=== PATIENT | male | born 1975 | race Caucasian/White ===

== ENCOUNTER 2021-02-08 08:57 | Day surgery (SDC) | payer OTHER, SELFPAY ==
[2021-02-08] VITALS (16 sets, daily range): BP systolic 115–171; BP diastolic 80–112; PULSE 76–92; RESP 16–97; TEMP 36.1–36.9; O2SAT 91–99; BMI 52.9
--- NOTE | 2021-02-08 09:55 | W.ED.ABDPA2 ---
HPI - Abdominal Pain General: Chief Complaint: Abdominal Pain Stated Complaint: ABD Pain Time Seen by Provider: 02/08/21 09:03 History of Present Illness: HPI narrative: 46-year-old male comes in complaining of an umbilical hernia he is a bulging umbilical hernia that is exquisitely tender. He had increased pain for the last 2 days he last ate last night around 9:00. He was seen earlier today by Dr. Edwards in the clinic and referred here for imaging. He denies any fever sweats chills no recent cough or cold he has been very nauseous but did not throw up until after the CT. He had a CT with IV contrast here immediately afterward he got very flushed nauseous but did not have any difficulty breathing. See notes below. MD elicited complaint: abdominal pain Onset (ago): day(s) Pain Consistency: constant Location: Diffuse Severity: moderate Quality: cramping Exacerbating factors: eating and movement Relieving factors: rest Associated Symptoms: Reports anorexia, bloating, GI cramping, nausea and poor appetite; Denies belching, change in bowel habits, change in stool character, chills, coffee ground emesis, constipation, diarrhea, dyspepsia, dysuria, excessive flatus, fever(s), heartburn, hematochezia, hematuria, hematemesis, fecal incontinence, loose stools, melena, syncope and vomiting Review of Systems Const: Denies: fever(s) or chills ENMT: Denies: throat pain, ear or mastoid pain, nasal discharge or nasal congestion Card: Denies: syncope Resp: Denies: dyspnea, productive cough or non-productive cough GI: Reports: nausea, bloating and GI cramping; Denies: vomiting, hematemesis, coffee ground emesis, heartburn, diarrhea, constipation, belching, excessive flatus, fecal incontinence, change in bowel habits, change in stool character, hematochezia or melena : Denies: dysuria or hematuria Skin/Breast: Denies: rash or pruritus PFSH ED PFSH: Medical History (Updated 02/10/21 @ 06:50 by Troy Spence DO) Arthritis Surgical History (Updated 02/08/21 @ 12:41 by Bladimir Edwards MD) History of knee surgery L x 2, R x 1 Social History (Updated 02/08/21 @ 12:44 by Bladimir Edwards MD) Smoking and tobacco status: never smoked Alcohol intake: never Physical Exam Const: COMMON NORMALS: no acute distress GENERAL APPEARANCE: cooperative and comfortable ORIENTATION/CONSCIOUSNESS: Yes awake, Yes oriented to person, Yes oriented to place and Yes oriented to time HENMT: COMMON NORMALS: normocephalic, atraumatic and hearing grossly normal bilaterally HEAD & SCALP: normocephalic and atraumatic Neck/C-Spine: COMMON NORMALS: no JVD Resp: COMMON NORMALS: normal respiratory effort, No retractions, No use of accessory muscles and clear to auscultation bilaterally AUSCULTATION: clear to auscultation bilaterally Cardio: COMMON NORMALS: no JVD, regular rate, regular rhythm and No murmurs present (Cardio) RATE: regular rate RHYTHM: regular rhythm GI: COMMON NORMALS: No hepatosplenomegaly present INSPECTION: Yes central obesity and Yes visible herniation (Obvious umbilical hernia mildly erythematous not amenable to reduction at t) AUSCULTATION: Yes Hypoactive bowel sounds present PALPATION: Yes Tenderness to palpation present (GI), No Guarding due to palpation present (GI) and Yes No hepatosplenomegaly present PERCUSSION: tympanic to percussion Extremity: COMMON NORMALS: normal to inspection, capillary refill normal, no clubbing, cyanosis or edema, no calf tenderness and no pedal edema Neuro: SENSORIUM/ORIENTATION: Yes oriented to person, Yes oriented to place and Yes oriented to time Skin: COMMON NORMALS: no rashes or lesions noted GENERAL SKIN EXAM: no rashes or lesions noted Course Vital Signs: Vital signs: Vital Signs Temperature 97.8 F 02/08/21 19:20 Pulse Rate 90 02/08/21 19:42 Respiratory Rate 18 02/08/21 19:42 Blood Pressure 115/80 02/08/21 19:42 Pulse Oximetry 92 02/08/21 19:42 MDM - Abdominal Pain MDM Narrative: Medical decision making narrative: Discussed with Dr. Edwards will admit for surgical reduction of the hernia he does not have a bowel obstruction contents and hernia omental fat however there is some evidence of necrosis on imaging. Lab Data: Labs: Lab Results 02/08/21 02/08/21 02/08/21 Range/Units 11:42 11:42 13:07 WBC 8.3 (4.0-10.0) 10^3/ uL RBC 5.01 (4.1-5.3) 10^6/u L Hgb 14.3 (11.7-16.6) g/dL Hct 46.0 (42.0-52.0) % MCV 91.8 (80-94) fL MCH 28.5 (28.0-34.0) pg MCHC 31.1 (30.0-36.0) g/dL RDW 12.6 (12.1-15.1) % Plt Count 211 (130-400) 10^3/c mm MPV 9.0 (7.4-10.4) fL Neut % (Auto) 56.7 % Lymph % (Auto) 37.1 % [place] % (Auto) 4.5 % Eos % (Auto) 0.7 % Baso % (Auto) 0.4 % Neut # (Auto) 4.70 (1.8-7.7) 10^3/u L Lymph # (Auto) 3.1 (0.8-4.8) 10^3/u L [place] # (Auto) 0.4 (0.2-0.9) 10^3/u L Eos # (Auto) 0.1 (0.0-0.8) 10^3/u L Baso # (Auto) 0.0 (0.0-0.1) 10^3/u L Nucleated RBC % (a uto) 0 % Nucleated RBCs # 0.0 /100WBC Sodium 139 (136-145) mmol/L Potassium 3.9 (3.5-5.1) mmol/L Chloride 99 (98-107) mmol/L Carbon Dioxide 29 (22-29) mmol/L Anion Gap 14.9 (5-19) BUN 8 (6-20) mg/dL Creatinine 0.6 L (0.7-1.2) mg/dL GFR Calculation 145.7 H (90-130) mL/min Glucose 119 H (65-115) mg/dL Calculated Osmolal ity 287 (285-295) mOsm/k g Calcium 8.3 L (8.5-10.5) mg/dL Total Bilirubin 0.4 (0.15-1.2) mg/dL AST 12 (0-40) U/L ALT 15 (0-41) U/L Alkaline Phosphata se 96 (40-130) IU/L Total Protein 6.8 (6.6-8.7) g/dL Albumin 3.7 (3.5-5.2) g/dL Globulin 3.1 (1.3-4.6) g/dL Lipase 15 (13-60) U/L Urine Color Yellow (Yellow) Urine Appearance Sl hazy (CLEAR) Urine pH 5 (5-7) Ur Specific Gravit y 1.005 (1.005-1.030) Urine Protein Neg (Negative) Urine Glucose (UA) Norm (Normal) Urine Ketones Negative (Negative) Urine Blood Neg (Negative) Urine Nitrate Negative (Negative) Urine Bilirubin Neg (Negative) Urine Urobilinogen Norm (Negative) mg/dL Ur Leukocyte Princess ase 2+ H (Negative) Urine RBC None (0-2) /hpf Urine WBC 5-10 H (0-5) /hpf Ur Squamous Epith Cells 0-4 H (0-5) /hpf Amorphous Sediment Not Reportable Urine Bacteria Trace (NONE) /hpf Urine Trichomonas 1+ H /hpf Discharge Plan Discharge Patient Disposition: Admitted As Inpatient Clinical Impression: Incarcerated umbilical hernia Condition: Stable Discharge Orders: Discharge Order (Routine); Ordered 02/08/21 Ordered By: Bladimir Edwards Discharge Diet: Advance as tolerated Discharge Activity: Limit activity as instructed Coding Level of Care Code ED Medical Staff Coordinator for Valerie Fwd Exam Comprehensive
--- NOTE | 2021-02-08 09:59 | CT_ITS ---
WS: [id number] CT ABDOMEN AND PELVIS WITH CONTRAST HISTORY: Abdominal pain., Diffuse. TECHNIQUE: Imaging performed of the abdomen and pelvis with IV contrast. Single phase imaging of the abdomen. Coronal and sagittal reformats are submitted. All CT scans at [facility] use at least one of these dose optimization techniques: automated exposure control; mA and/or kV adjustment per patient size (includes targeted exams where dose is matched to clinical indication); or iterativ e reconstruction. IV CONTRAST: Omnipaque 300; 95 mL IV. Oral contrast: No DLP: 2724.35 mGy.cm COMPARISON: None available. Lower thorax: Lung bases are clear. Heart is normal size. Small hiatal hernia. Liver/biliary system: Liver is top normal size with moderate hepatic steatosis. No mass or bile duct dilatation. Gallbladder: Normal. No gallstones or wall thickening. No pericholecystic fluid. Pancreas: Normal size pancreas and pancreatic duct. No adjacent inflammation. Spleen: Normal size spleen. No mass or infarct. Adrenal glands: Normal. Right kidney: Normal. Left kidney: Normal. Aorta: Normal. Lymphadenopathy: None. Free fluid: None. GI tract: No evidence for appendicitis or acute diverticulitis. No GI tract obstruction. Abdominal wall: Ventral abdominal wall hernia at the level of the umbilicus. Defect within the abdomi nal wall is 3.1 cm. Omental fat herniating through the defect with a moderate amount of fat stranding . The fat stranding is both within the omental fat which is extruded through the hernia and also in t he intra-abdominal cavity. No air. No mass. Herniation of omental fat is 6.7 x 6.2 cm. Pelvis: No free fluid or adenopathy within the pelvis. Bones: Degenerative disc disease at L4-5 and L5-S1 with foraminal osteophytes. CT/CT abdomen pelvis w con* [id number] IMPRESSION: 1. Large ventral abdominal wall hernia with extrusion of omental fat. Acute in duration of the omental fat consistent with strangulation and possible necrosis of the fat. 2. Otherwise negative.
[2021-02-08] MEDS: sodium chloride 0.9% 1,000 ML 999 ML IV (10:46)
[2021-02-08] MEDS: ondansetron 2 mg/ML SDV 2 mL 4 MG IVP (10:46)
[2021-02-08] MEDS: iohexol 350 mg/mL 100 mL Btl IV (11:25)
[2021-02-08] MEDS: diphenhydrAMINE 50 mg/mL SDV 1mL IVP (11:41)
[2021-02-08] MEDS: morphine 4 mg/mL SDV 1 mL IVP ×2 (11:48→12:20)
[2021-02-08] MEDS: promethazine 25 mg/mL SDV 1 mL IM (11:49)
[2021-02-08 11:57] LABS: Basophils % 0.4 %; Eosinophils # 0.1 10^3/uL (0.0-0.8); Eosinophils % 0.7 %; Hemoglobin 14.3 g/dL (11.7-16.6); Lymphocytes # 3.1 10^3/uL (0.8-4.8); Lymphocytes % 37.1 %; Mean Corpuscular HGB Conc 31.1 g/dL (30.0-36.0); Mean Corpuscular Hemoglobin 28.5 pg (28.0-34.0); Mean Corpuscular Volume 91.8 fL (80-94); Monocytes # 0.4 10^3/uL (0.2-0.9); Monocytes % 4.5 %; Neutrophils % 56.7 %; Nucleated Red Blood Cells % 0 %; Platelet Count 211 10^3/cmm (130-400); Red Blood Count 5.01 10^6/uL (4.1-5.3); Red Cell Distribution Width 12.6 % (12.1-15.1); White Blood Count 8.3 10^3/uL (4.0-10.0)
[2021-02-08 12:12] LABS: Alanine Aminotransferase 15 U/L (0-41); Albumin Level 3.7 g/dL (3.5-5.2); Alkaline Phosphatase 96 IU/L (40-130); Anion Gap 14.9 (5-19); Aspartate Amino Transferase 12 U/L (0-40); Blood Urea Nitrogen 8 mg/dL (6-20); Calcium 8.3 mg/dL (8.5-10.5); Carbon Dioxide 29 mmol/L (22-29); Chloride 99 mmol/L (98-107); Globulin 3.1 g/dL (1.3-4.6); Glomerular Filtration Rate 145.7 mL/min (90-130); Glucose 119 mg/dL (65-115); Lipase 15 U/L (13-60); Osmolality Calculated 287 mOsm/kg (285-295); Potassium 3.9 mmol/L (3.5-5.1); Sodium 139 mmol/L (136-145); Total Bilirubin 0.4 mg/dL (0.15-1.2); Total Protein 6.8 g/dL (6.6-8.7)
--- NOTE | 2021-02-08 12:40 | PM.HP ---
Providers/Chief Complaint Admitting Physician: General Surgery Bladimir Edwards MD Chief Complaint: ABD Pain History of Present Illness Jose G Franz is a 46 year old male who has known about an umbilical hernia for 5 to 6 years. He apparently was helping someone work on a house 2 days ago and the hernia became larger and quite uncomfortable. He apparently put up with this yesterday but then came into his doctor's office today. He was sent to the emergency room where a CAT scan showed incarcerated omentum. Review of Systems General: Reports: 10 or more systems reviewed and unremarkable except in HPI and below Const: Denies: fever(s) GI: Reports: abdominal pain and other (Umbilical hernia present for 5-6 years); Denies: nausea or vomiting Skin/Breast: Reports: rash (With injection of contrast at time of CAT scan today) Medications/Allergies Home Medications Medication Instructions Recorded Confirmed Last Taken Type meloxicam 15 mg PO QAM 02/08/21 02/08/21 02/07/21 History naproxen sodium [Aleve] 440 mg PO PRN 02/08/21 02/08/21 Unknown History phentermine 37.5 mg PO DAILY PRN 02/08/21 02/08/21 Unknown History Allergies Allergy/AdvReac Type Severity Reaction Status Date / Time Iodinated Contrast Media Allergy Diffuse Verified 02/08/21 12:46 rash PFSH Acute PFSH: Medical History (Updated 02/08/21 @ 12:41 by Bladimir Edwards MD) Arthritis Surgical History (Updated 02/08/21 @ 12:41 by Bladimir Edwards MD) History of knee surgery L x 2, R x 1 Social History (Updated 02/08/21 @ 12:44 by Bladimir Edwards MD) Smoking and tobacco status: never smoked Alcohol intake: never Vitals/I&O/Wt Last Vital Signs Temp 98.4 F 02/08/21 09:09 Pulse 79 02/08/21 12:24 Resp 18 02/08/21 12:24 BP 158/110 02/08/21 12:24 Pulse Ox 99 02/08/21 12:24 Weight last 48 hrs Weight 458 lb Physical Exam Narrative: EXAM NARRATIVE: The patient was encountered in his room in the emergency department. He does not appear to feel very well but apparently had a reaction to the intravenous contrast at the time of his CAT scan and has a diffuse rash. The pupils are equal. No carotid bruits are heard. The lungs are clear anteriorly. The heart is regular. The abdomen has a diffuse, splotchy red rash primarily across the abdomen. He has an obvious umbilical hernia which deviates just to the left side of the umbilicus. It's not tense but it is quite tender and cannot be reduced. There is no overlying independent erythema, etc. The extremities reveal mild edema. Neurologically the patient appears to be grossly intact. Data : 02/08/21 11:42 02/08/21 11:42 CT Abd/Pel: Radiologist's impression: CT abdomen/pelvis 02/08/2021 IMPRESSION: 1. Large ventral abdominal wall hernia with extrusion of omental fat. Acute induration of the omental fat consistent with strangulation and possible necrosis of the fat. 2. Otherwise negative. A&P Assessment and plan (1) Incarcerated umbilical hernia: The patient has an incarcerated umbilical hernia. He is in quite a bit of discomfort with it. It only appears to contain omentum, but it may be compromising the blood flow to that part of the omentum. I discussed reduction/excision of the incarcerated omentum and repair of the umbilical hernia with the patient in some detail. Surgical risks of bleeding, infection, etc. were all gone over. The patient would like to undergo surgery today. I will make arrangements for the procedure later this afternoon. Status: Acute Attestations Medical Necessity Statement*: Based on my medical assessment, presenting symptoms and consideration of the scope of surgical therapy, I expect this patient will require treatment in the hospital for a period of time spanning less than 2 midnights, and is therefore being placed in observation status. Coding Level of Care Code Acute Steamfitter Apprentice for [facility] Diagnoses Incarcerated umbilical hernia K42.0
[2021-02-08 13:24] LABS: Add Urine Microscopic? YES; Bilirubin Urine Neg (Negative); Blood Urine Neg (Negative); Glucose Urine UA Norm (Normal); Ketones Urine Negative (Negative); Leukocyte Esterase Urine 2+ (Negative); Nitrate Urine Negative (Negative); Protein Urine Neg (Negative); Specific Gravity, Urine 1.005 (1.005-1.030); Urine Appearance SL Hazy (CLEAR); Urine Color Yellow (Yellow); Urobilinogen Urine Norm (Negative); pH Urine 5 (5-7)
[2021-02-08 13:39] LABS: Squamous Epithelial Cell Urine 0-4 /hpf (0-5); Trichomonas Urine 1+ /hpf
[2021-02-08 13:40] LABS: Add Urine Culture? No; Bacteria Urine TRACE /hpf
--- NOTE | 2021-02-08 14:44 | ANES.PREANE2 ---
Pre-Anesthetic Assessment Pre-Anesthetic Assessment: Height/Weight: Height 1.98 m Weight 207.745 kg Temp Pulse Resp BP Pulse Ox 98.4 F 77 18 168/98 98 02/08/21 09:09 02/08/21 13:02 02/08/21 13:02 02/08/21 13:02 02/08/21 13:02 Preop Diagnosis: incarcerated hernia Proposed Procedure: vental hernia repair Familial anesthetic complications: none Last intake: > 8 hrs Social: Social History: No alcohol and No tobacco Exam: Pre-Anes Outpt Exam: alert, oriented x 3, clear to auscultation bilaterally and regular rate & rhythm Airway: Cervical ROM: WNL MP: 3 Dentition: Other (missing teeth) Pulmonary: Comments: probable MADELIN Anesthetic Plan: ASA status: 2 Anesthesia: General Risk of > 500 ml blood loss (7ml/kg in children): No PFSH Anesthesia PFSH: Medical History (Updated 02/08/21 @ 12:41 by Bladimir Edwards MD) Arthritis Surgical History (Updated 02/08/21 @ 12:41 by Bladimir Edwards MD) History of knee surgery L x 2, R x 1 Social History (Updated 02/08/21 @ 12:44 by Bladimir Edwards MD) Smoking and tobacco status: never smoked Alcohol intake: never Data Anesthesia CBC & Chem 7: 02/08/21 11:42 02/08/21 11:42 Other Labs: Laboratory Results - last 48 hr 02/08/21 02/08/21 02/08/21 11:42 11:42 13:07 WBC 8.3 RBC 5.01 Hgb 14.3 Hct 46.0 MCV 91.8 MCH 28.5 MCHC 31.1 RDW 12.6 Plt Count 211 MPV 9.0 Neut % (Auto) 56.7 Lymph % (Auto) 37.1 [place] % (Auto) 4.5 Eos % (Auto) 0.7 Baso % (Auto) 0.4 Neut # (Auto) 4.70 Lymph # (Auto) 3.1 [place] # (Auto) 0.4 Eos # (Auto) 0.1 Baso # (Auto) 0.0 Nucleated RBC % (auto) 0 Nucleated RBCs # 0.0 Sodium 139 Potassium 3.9 Chloride 99 Carbon Dioxide 29 Anion Gap 14.9 BUN 8 Creatinine 0.6 L GFR Calculation 145.7 H Glucose 119 H Calculated Osmolality 287 Calcium 8.3 L Total Bilirubin 0.4 AST 12 ALT 15 Alkaline Phosphatase 96 Total Protein 6.8 Albumin 3.7 Globulin 3.1 Lipase 15 Urine Color Yellow Urine Appearance Sl hazy Urine pH 5 Ur Specific [place] 1.005 Urine Protein Neg Urine Glucose (UA) Norm Urine Ketones Negative Urine Blood Neg Urine Nitrate Negative Urine Bilirubin Neg Urine Urobilinogen Norm Ur Leukocyte Esterase 2+ H Urine RBC None Urine WBC 5-10 H Ur Squamous Epith Cells 0-4 H Amorphous Sediment Not Reportable Urine Bacteria Trace Urine Trichomonas 1+ H Cardiac Studies: No Data to Display
[2021-02-08] MEDS: sodium chloride 0.9% 1,000 ML 30 ML IV (17:30)
[2021-02-08] MEDS: ceFAZolin 3,000 MG in sodium chloride 0.9% (100 ml) 100 ML 200 MG IV (18:00)
--- NOTE | 2021-02-08 18:39 | P.OP_ITS ---
Operative Report Date of procedure: February 08, 2021 Pre-op Diagnosis: incarcerated umbilical hernia. Post-op diagnosis: same Procedure Done: Reduction and repair of incarcerated umbilical hernia. Specimens removed/disposition: Incarcerated hernia sac with contents. Surgeon: Bladimir Edwards Anesthesia: General Estimated blood loss (mL): 5 Complications: None. Condition: stable Disposition: PACU Procedure: The patient was brought to the operating room and was placed in a supine position on the operating room table. General endotracheal anesthesia was induced. The abdomen was prepped and draped in a sterile fashion. A combination of 1% lidocaine with 1 to 100,000 parts epinephrine and 0.5% bupivacaine was used for local anesthesia throughout the procedure for postoperative anesthesia. A curvilinear incision was carried out underneath the incarcerated umbilical hernia. Cautery was used to divide the subcutaneous tissue and the hernia sac was encountered. This was carefully freed from the overlying umbilical skin and was freed down to the fascial level where eventually the sac was excised. The patient had incarcerated omentum that was still viable within the sac but it would not reduce. For that reason the omentum was serially divided and ligated with ties of 2-0 Vicryl and the hernia sac and incarcerated omentum was sent to pathology. The remaining omentum was reduced through the defect which measured perhaps 2 cm in diameter. The defect was closed using multiple inverted interrupted sutures of 1 Prolene as well as some interrupted sutures of 0 Ethi miller. The wound was extensively irrigated. The umbilical skin was brought back down to the fascia with a suture of 0 Vicryl. The wound was again irrigated. The dermis was brought back together with several inverted interrupted sutures of 3-0 Vicryl and the skin was approximated using a running subcuticular suture of 3-0 Vicryl. Benzoin and Steri-Strips were placed over the incision and a sterile bandage followed. The patient was taken to the recovery area in stable condition postoperatively.
[2021-02-08] MEDS: HYDROcodone-acetaminophen 5-325 mg Tablet 2 TAB PO (20:00)
--- NOTE | 2021-02-08 21:25 | ANE.PACU2 ---
Inpatient post-anesthesia follow up: Airway intact: Yes Vital signs: Temperature 97.8 F Pulse Rate [Monito r] 76 Pulse Rate 90 Respiratory Rate 18 Blood Pressure [Ri ght Arm] 171/112 Blood Pressure 115/80 Pulse Oximetry 92 Oxygen Delivery Me thod Room Air Oxygen Flow Rate 8 Fraction of Inspir ed Oxygen Hydration adequate: Yes Nausea and vomiting: No Pain level: 2 Mental status: Baseline
--- NOTE | 2021-02-09 09:40 | P.DS_ITS ---
Discharge Providers Date of Admission: February 08, 2021 Date of Discharge: February 08, 2021 Attending Provider at Discharge: Bladimir Edwards MD Diagnoses at Discharge Discharge Diagnosis (1) Incarcerated umbilical hernia: Status: Resolved Reason for Visit Reason for Visit: ABD Pain Hospital Course Hospital Course This is a 46-year-old white male who was in town helping someone with a house project. He had a several year history of a known umbilical hernia who presented to the emergency department after physical activity resulted in enlargement and increasing discomfort at the hernia site. He was initially seen in a primary care physician's office with an incarcerated umbilical hernia and was sent to the emergency department. A CAT scan showed incarcerated omentum within the hernia defect. The patient was having quite a bit of discomfort. He was brought into the hospital on the surgical service under observation as ordered by the emergency room physician. I counseled the patient regarding reduction and repair of his hernia. Given the fact that he only had omentum in the small hernia, I told him I thought he could probably go home after a surgical procedure to repair his hernia. The patient agreed to proceed. The surgery was performed the same day and the patient was discharged after surgery in stable condition. He was counseled regarding wound care, activity limitations for 6 weeks, diet, etc. I made arrangements for the patient to follow-up in my office in 10 to 14 days, but he made me aware that he is from out of state and is likely going to be gone from the area in the next several days. I told him I was going to leave the follow-up arrangements in place just in case he was still in the area and he voiced understanding. If he ends up going home prior to that time, he is going to follow-up with his regular physicians in [place]. Discharge Data Data Completed and Pending: Completed Studies During Hospitalization Category Date Time Status CT abdomen pelvis w con* [id number] Stat Cat Scan 02/08/21 09:59 Completed Pending at discharge Category Date Time Status Pathology: Surgic al [PTH] Routine Pth 02/08/21 18:35 Received Labs from last 24 hours 02/08/21 02/08/21 02/08/21 13:07 11:42 11:42 WBC 8.3 RBC 5.01 Hgb 14.3 Hct 46.0 MCV 91.8 MCH 28.5 MCHC 31.1 RDW 12.6 Plt Count 211 MPV 9.0 Neut % (Auto) 56.7 Lymph % (Auto) 37.1 [place] % (Auto) 4.5 Eos % (Auto) 0.7 Baso % (Auto) 0.4 Neut # (Auto) 4.70 Lymph # (Auto) 3.1 [place] # (Auto) 0.4 Eos # (Auto) 0.1 Baso # (Auto) 0.0 Nucleated RBC % (a uto) 0 Nucleated RBCs # 0.0 Sodium 139 Potassium 3.9 Chloride 99 Carbon Dioxide 29 Anion Gap 14.9 BUN 8 Creatinine 0.6 L GFR Calculation 145.7 H Glucose 119 H Calculated Osmolal ity 287 Calcium 8.3 L Total Bilirubin 0.4 AST 12 ALT 15 Alkaline Phosphata se 96 Total Protein 6.8 Albumin 3.7 Globulin 3.1 Lipase 15 Urine Color Yellow Urine Appearance Sl hazy Urine pH 5 Ur Specific Gravit y 1.005 Urine Protein Neg Urine Glucose (UA) Norm Urine Ketones Negative Urine Blood Neg Urine Nitrate Negative Urine Bilirubin Neg Urine Urobilinogen Norm Ur Leukocyte Princess ase 2+ H Urine RBC None Urine WBC 5-10 H Ur Squamous Epith Cells 0-4 H Amorphous Sediment Not Reportable Urine Bacteria Trace Urine Trichomonas 1+ H Vitals: Last Vital Signs Temp 97.8 F 02/08/21 19:20 Pulse 90 02/08/21 19:42 Resp 18 02/08/21 19:42 BP 115/80 02/08/21 19:42 Pulse Ox 92 02/08/21 19:42 Discharge Plan Discharge Patient Disposition: Home Condition: Stable Prescriptions: New hydrocodone-acetaminophen 5-325 mg tablet 1 - 2 tab PO Q5H PRN (Reason: pain) Qty: 30 RF: 0 Continued meloxicam 15 mg tablet 15 mg PO QAM RF: 0 Aleve 220 mg Tablet 440 mg PO PRN RF: 0 Discharge Orders: Discharge Order (Routine); Ordered 02/08/21 Ordered By: Bladimir Edwards Referrals: Bladimir Edwards MD [Physician] - 2 weeks (Nursing: Please have the patient / family call Dr. Edwards's office tomorrow ([phone]) and make an appointment for the patient to be seen in 10-14 days.) Discharge Diet: Advance as tolerated Discharge Activity: Limit activity as instructed Patient Instructions: Post Anesthesia Care Activity Restrictions/Additional Instructions: 1. Discharge to home today. 2. Appointment to see Dr. Edwards in 10-14 days as above. 3. Bandage off tomorrow, leave Steri-Strip(s) on, may shower. 4. Alva 5/325 1-2 tablets by mouth every 5 hours as needed for pain. #30, no refills. No lifting over 20 pounds, no repetitive bending or twisting, no strenuous pushing / pulling or other heavy activity. Ambulate regularly. May go up and down steps if needed. Discharge Attestations Time Spent in Discharge Care*: less than 30 min Quality Metrics Clinical Quality Measures During this hospital stay, did patient experience: None Coding Level of Care Code Acute Chg FW DC note Diagnoses Incarcerated umbilical hernia K42.0
== END 2021-02-08 20:08 | disposition home or self-care (01) ==
LOC: ER 15:10 → OPS 15:43
PROVIDERS: Emergency Provider Family Medicine; Visit Provider Surgery
PROC: (CPT 49587; principal; 2021-02-08 17:50)
DX: K42.0 Umbilical hernia with obstruction, without gangrene (principal); M19.90 Unspecified osteoarthritis, unspecified site
CPT/HCPCS: 49587; 36415; 74177; 80053; 81001; 83690; 85025; 88302; 96361; 96365; 96372; 96375; 96376; J0330; J0690; J1100; J1200; J2270; J2405; J2550; J2704; J2710; J2930; J3010; J3490; J7030; Q9967